=== PATIENT | male | born 1975 | race Caucasian/White ===

== ENCOUNTER 2022-02-28 21:33 | Emergency (ER) | payer BC ==
[~2022-02-28] VITALS: Ht 180.3 cm; Wt 125.6 kg
[2022-02-28 23:14] VITALS: BP 155/92
[2022-02-28] MEDS ORDERED: ACETAMINOPHEN 500 MG TABLET PO ONE (23:30)
== END 2022-02-28 23:42 | disposition home or self-care (01) ==
LOC: EDH 21:33
DX: S80.812A Abrasion, left lower leg, initial encounter (principal); M23.92 Unspecified internal derangement of left knee; E78.00 Pure hypercholesterolemia, unspecified; I95.9 Hypotension, unspecified; Z98.890 Other specified postprocedural states; W17.2XXA Fall into hole, initial encounter; Y93.89 Activity, other specified; Y92.89 Other specified places as the place of occurrence of the external cause; Y99.8 Other external cause status
CPT/HCPCS: 29505; 73562